=== PATIENT | male | born 2005 | race Caucasian/White ===

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

== ENCOUNTER 2025-03-12 22:07 | Emergency (ER) | payer OTHER ==
[~2025-03-12] VITALS: Ht 182.9 cm; Wt 65.8 kg
[2025-03-12 22:15] VITALS: BP 147/80
[2025-03-12] MEDS ORDERED: Trimethoprim/Sulfamethoxazole DS Tab PO ONE (22:40)
[2025-03-12] MEDS ORDERED: BACTRIM DS TAB1 EAC1 PO (22:43)
[2025-03-12] MEDS ORDERED: CEPH500 PO (22:43)
== END 2025-03-12 22:51 | disposition home or self-care (01) ==
LOC: ER 22:07
DX: L02.415 Cutaneous abscess of right lower limb (principal); L03.115 Cellulitis of right lower limb
CPT/HCPCS: 99283; A9270